=== PATIENT | male | born 1985 | race Caucasian/White ===

== ENCOUNTER 2018-06-24 20:48 | Emergency (ER) | payer BC ==
[~2018-06-24] VITALS: Ht 175.3 cm; Wt 88.6 kg
[~2018-06-24 20:48] MED LIST: CEPHALEXIN500 M1 PO; HCTZ 25MG TAB25 MG PO; NORCO 325 MG-51 TAB PO
[2018-06-24 20:53] VITALS: BP 141/98; TEMP 98.1
[2018-06-24] MEDS ORDERED: HYDRODIURIL50 MG PO (20:55)
[2018-06-24] MEDS ORDERED: NORCO 325 MG-7.1 TAB PO (22:04)
[2018-06-24] MEDS ORDERED: AMOXICILLIN 8751 TAB PO (22:04)
[2018-06-24 22:27] VITALS: PULSE 102
== END 2018-06-24 22:27 | disposition home or self-care (01) ==
LOC: COL.ER 20:48
DX: S01.312A Laceration without foreign body of left ear, initial encounter (principal); I10 Essential (primary) hypertension; F17.220 Nicotine dependence, chewing tobacco, uncomplicated; W54.0XXA Bitten by dog, initial encounter
CPT/HCPCS: J1170

== ENCOUNTER 2019-01-04 10:18 | Emergency (ER) | payer BC ==
[~2019-01-04] VITALS: Ht 175.3 cm; Wt 86.4 kg
[~2019-01-04 10:18] MED LIST changes: +AMOXICILLIN 8751 TAB PO; +HYDRODIURIL50 MG PO; +NORCO 325 MG-7.1 TAB PO
[2019-01-04 10:39] VITALS: TEMP 98.8
[2019-01-04 11:43] LABS: COLLECTION METHOD CLEAN CATCH
[2019-01-04 11:50] LABS: PH 6 (5-8); SQUAMOUS EPITHELIAL None Seen /hpf; URINE APPEARANCE Clear; URINE BACTERIA None Seen /hpf; URINE BILIRUBIN Negative (NEGATIVE); URINE BLOOD Negative (NEGATIVE); URINE COLOR Yellow; URINE GLUCOSE Negative (NEGATIVE); URINE KETONE 1+ (NEGATIVE); URINE LEUKOCYTE ESTERASE Negative (NEGATIVE); URINE NITRATE Negative (NEGATIVE); URINE PROTEIN(semi-quant) Negative (NEGATIVE); URINE RBC None Seen /hpf; URINE UROBILINOGEN Negative (NEGATIVE)
[2019-01-04 11:53] LABS: BASO % 0.6 % (0.0-2.0); EOS # 0.3 (0.0-0.7); EOS % 4.6 % (0-4.0); GRAN # 4.3 (1.4-6.5); GRAN % 62.4 % (42.2-75.2); HEMATOCRIT 47.7 % (42.0-52.0); LYMPH # 1.4 (1.2-3.4); LYMPH % 20.3 % (20.0-51.0); MEAN CELL VOLUME 91 fl (80.0-100.0); MEAN CORPUSCULAR HEMOGLOBIN 32 pg (27.0-31.0); MEAN CORPUSCULAR HGB CONC 36 g/dl (33.0-37.0); MEAN PLATELET VOLUME 9.5 fl (7.4-10.4); MONO # 0.8 (0.1-0.6); MONO % 11.8 % (1.7-9.3); PLATELET COUNT 278 K/mm3 (130-400); RED BLOOD COUNT 5.26 M/mm3 (4.20-5.60); REDCELL DISTRIBUTION WIDTH-CV 11.9 % (11.5-14.5)
[2019-01-04 12:02] LABS: ALBUMIN 5.3 gm/dL (3.5-5.0); BILIRUBIN,TOTAL 0.9 mg/dL (0.0-1.0); C-REACTIVE PROTEIN 3.3 mg/dL (0.0-0.9); CALCIUM 9.9 mg/dL (8.4-10.2); CREATININE, serum 0.88 mg/dL (0.66-1.25); POTASSIUM 3.5 mmol/L (3.4-5.0); TOTAL PROTEIN 9.9 gm/dL (6.4-8.2)
[2019-01-04] MEDS ORDERED: PROTONIX 40MG T40 MG PO (14:08)
[2019-01-04] MEDS ORDERED: CARAFATE 1GM1 G PO (14:08)
[2019-01-04] MEDS ORDERED: NORCO 325 MG-51 TAB PO (14:30)
[2019-01-04 14:43] VITALS: BP 163/77; PULSE 82
== END 2019-01-04 14:45 | disposition home or self-care (01) ==
LOC: COL.ER 10:18
PROVIDERS: Emergency Medicine
DX: K76.0 Fatty (change of) liver, not elsewhere classified (principal); K29.80 Duodenitis without bleeding; R16.0 Hepatomegaly, not elsewhere classified; I10 Essential (primary) hypertension; K21.9 Gastro-esophageal reflux disease without esophagitis; F17.220 Nicotine dependence, chewing tobacco, uncomplicated; F10.10 Alcohol abuse, uncomplicated
CPT/HCPCS: C9113; J2270; J2405; J7030; Q9967

== ENCOUNTER → 2019-05-22 | Outpatient (CLI) | payer BC ==
[~2019-05-22] MED LIST changes: +CARAFATE 1GM1 G PO; +PROTONIX 40MG T40 MG PO
[2019-05-22 15:12] LABS: BASO % 0.6 % (0.0-2.0); EOS # 0.1 (0.0-0.7); EOS % 1.5 % (0-4.0); GRAN # 4.3 (1.4-6.5); GRAN % 65.2 % (42.2-75.2); HEMATOCRIT 45.7 % (42.0-52.0); HEMOGLOBIN 15.7 g/dl (13.5-18.0); LYMPH # 1.3 (1.2-3.4); LYMPH % 20.1 % (20.0-51.0); MEAN CELL VOLUME 93 fl (80.0-100.0); MEAN CORPUSCULAR HEMOGLOBIN 32 pg (27.0-31.0); MEAN CORPUSCULAR HGB CONC 34 g/dl (33.0-37.0); MEAN PLATELET VOLUME 9.9 fl (7.4-10.4); MONO # 0.8 (0.1-0.6); PLATELET COUNT 256 K/mm3 (130-400); RED BLOOD COUNT 4.91 M/mm3 (4.20-5.60); REDCELL DISTRIBUTION WIDTH-CV 12.5 % (11.5-14.5)
[2019-05-22 15:17] LABS: ALBUMIN 4.8 gm/dL (3.5-5.0); BILIRUBIN,TOTAL 0.8 mg/dL (0.0-1.0); CREATININE, serum 0.91 (0.66-1.25); POTASSIUM 4.3 mmol/L (3.4-5.0); TOTAL PROTEIN 8.9 gm/dL (6.4-8.2)
== END ==
LOC: ZCOL.LAB 13:59
PROVIDERS: Family Medicine
DX: R10.13 Epigastric pain (principal)

== ENCOUNTER → 2020-01-14 | Outpatient (CLI) | payer OTHER, BC | LOC: MHCPAIN 10:23 | DX: M25.511 Pain in right shoulder (principal); M47.22 Other spondylosis with radiculopathy, cervical region | CPT/HCPCS: G0463 ==

== ENCOUNTER → 2020-05-05 | Outpatient (CLI) | payer OTHER, BC | LOC: MHCPAIN 12:00 | DX: M54.2 Cervicalgia (principal); R51 Headache; G89.29 Other chronic pain | CPT/HCPCS: G0463; J1100; Q9967 ==

== ENCOUNTER 2022-01-13 09:46 | Emergency (ER) | payer OTHER, BC ==
[~2022-01-13] VITALS: Ht 175.3 cm; Wt 88.6 kg
[2022-01-13 09:57] VITALS: TEMP 97.9
[2022-01-13 10:36] LABS: BASO # 0.1 K/mm3 (0.0-0.2); BASO % 0.7 % (0.0-2.0); EOS # 0.2 K/mm3 (0.0-0.7); EOS % 2.2 % (0.0-4.0); GRAN % 57.8 % (42.2-75.2); HEMATOCRIT 45.1 % (42.0-52.0); HEMOGLOBIN 15.9 g/dl (13.5-18.0); LYMPH # 1.8 K/mm3 (1.2-3.4); LYMPH % 25.8 % (20.0-51.0); MEAN CELL VOLUME 90 fl (80.0-100.0); MEAN CORPUSCULAR HEMOGLOBIN 32 pg (27-31); MEAN CORPUSCULAR HGB CONC 35 g/dl (33.0-37.0); MEAN PLATELET VOLUME 9.1 fl (7.4-10.4); MONO # 0.9 K/mm3 (0.1-0.6); MONO % 12.8 % (1.7-9.3); PLATELET COUNT 314 K/mm3 (130-400); RED BLOOD COUNT 5.02 M/mm3 (4.20-5.60); REDCELL DISTRIBUTION WIDTH-CV 12.4 % (11.5-14.5)
[2022-01-13 10:57] LABS: ALBUMIN 4.9 gm/dL (3.5-5.0); BILIRUBIN,TOTAL 0.9 mg/dL (0.2-1.2); C-REACTIVE PROTEIN 1.04 mg/dL (0.00-0.50); CALCIUM 10.2 mg/dL (8.4-10.2); CREATININE, serum 1.06 mg/dL (0.72-1.25); POTASSIUM 3.9 mmol/L (3.5-4.5); TOTAL PROTEIN 8.8 gm/dL (6.2-8.1)
[2022-01-13 12:52] VITALS: BP 164/112; PULSE 102
== END 2022-01-13 12:52 | disposition home or self-care (01) ==
LOC: COL.ER 09:46
PROVIDERS: Nurse Practitioner
DX: R10.13 Epigastric pain (principal); R11.0 Nausea
CPT/HCPCS: J2270; J2405; J7030

== ENCOUNTER → 2022-02-22 | Outpatient (CLI) | payer BC ==
[~2022-02-22] VITALS: Ht 175.3 cm; Wt 91.3 kg
[~2022-02-22] MED LIST changes: +PERCOCET 325 MG1 TA3 PO; +ZESTRIL 20MG TA20 MG PO
[2022-02-22 07:55] VITALS: BP 156/89; PULSE 79; TEMP 98
[2022-02-22 08:45] VITALS: BP 167/114; PULSE 80
== END ==
LOC: COL.RAD 07:00
DX: M54.41 Lumbago with sciatica, right side (principal)
CPT/HCPCS: J3301

== ENCOUNTER 2022-02-25 10:12 | Emergency (ER) | payer OTHER ==
[~2022-02-25] VITALS: Ht 175.3 cm; Wt 88.6 kg
[2022-02-25 10:18] VITALS: TEMP 98.5
[2022-02-25] MEDS ORDERED: PERCOCET 325 MG1 TA3 PO (13:09)
[2022-02-25 13:27] VITALS: BP 151/101; PULSE 78
[2022-02-27] MEDS ORDERED: PERCOCET 325 MG1 TA3 PO (10:13)
== END 2022-02-25 13:28 | disposition home or self-care (01) ==
LOC: COL.ER 10:12
DX: M51.86 Other intervertebral disc disorders, lumbar region (principal); M54.16 Radiculopathy, lumbar region
CPT/HCPCS: A9575; J1170; J2405; J3010

== ENCOUNTER → 2022-03-19 | Outpatient (CLI) | payer BC ==
[~2022-03-19] VITALS: Ht 175.3 cm; Wt 90.4 kg
[2022-03-19 13:39] VITALS: BP 145/91; PULSE 87; TEMP 97.8
[2022-03-19 14:05] VITALS: BP 150/99; PULSE 82
== END ==
LOC: COL.RAD 13:00
DX: M54.41 Lumbago with sciatica, right side (principal)
CPT/HCPCS: J3301

== ENCOUNTER → 2024-06-21 | Outpatient (CLI) | payer BC ==
[~2024-06-21] MED LIST changes: +Iohexol 300 - 10 ML VIAL ONE; +Lidocaine PF 2% (20 MG/ML) 2 ML VIAL ONE
== END ==
LOC: MHCPAIN 12:06
DX: M47.817 Spondylosis without myelopathy or radiculopathy, lumbosacral region (principal)
CPT/HCPCS: J1100; Q9967